=== PATIENT | female | born 1975 | race Caucasian/White ===

== ENCOUNTER 2017-06-13 14:27 | Emergency (ER) | payer OTHER ==
[2017-06-13] MEDS: KETOROLAC 60 MG INJ IM (16:49)
[2017-06-13] MEDS: DIAZEPAM 2 MG TAB PO (16:53)
== END 2017-06-13 17:16 | disposition home or self-care (01) ==
LOC: FTE 14:27
DX: M54.5 Low back pain (principal)
CPT/HCPCS: 81025; 96372; 99284-25

== ENCOUNTER 2018-03-05 12:58 | Emergency (ER) | payer OTHER ==
[2018-03-05] MEDS: HYDROCODONE/APAP (5/325) TAB PO (14:42)
[2018-03-05] MEDS: CYCLOBENZAPRINE 10 MG TAB PO (14:42)
[2018-03-05] MEDS: METHYLPREDNISOLONE 125 MG INJ IM (14:43)
[2018-03-05] MEDS: KETOROLAC 60 MG INJ IM (14:43)
== END 2018-03-05 15:03 | disposition home or self-care (01) ==
LOC: FTE 15:03
DX: M54.41 Lumbago with sciatica, right side (principal)
CPT/HCPCS: 81025; 96372; 99284-25